=== PATIENT | female | born 1950 | race Caucasian/White ===

== ENCOUNTER 2019-12-01 18:58 | Emergency (ER) | payer MEDICARE, OTHER ==
[~2019-12-01] VITALS: Ht 152.4 cm; Wt 49.4 kg
[~2019-12-01 18:58] MED LIST: ANALGESIC325 MG PO; ATENOLOL; KEFLEX500 MG PO; LOTREL 5-40 MG1 EACH PO; NORCO 7.5-3251 EACH PO; PAXIL; PRILOSEC2.5 MG PO
[2019-12-01 19:19] VITALS: BP 118/56
[2019-12-01 19:55] LABS: INFLUENZA A ANTIGEN Negative (Negative); INFLUENZA B ANTIGEN Negative (Negative)
[2019-12-01] MEDS ORDERED: ZPAK PO (20:17)
[2019-12-01] MEDS ORDERED: PROAIR HFA8.5 GM INH (20:17)
[2019-12-01] MEDS ORDERED: PREDNISONE 20 M20 MG PO (20:20)
== END 2019-12-01 20:35 | disposition home or self-care (01) ==
LOC: M.ERS 18:58
PROVIDERS: Physician Assistant
DX: J44.1 Chronic obstructive pulmonary disease with (acute) exacerbation (principal); J06.9 Acute upper respiratory infection, unspecified; Z20.828 Contact with and (suspected) exposure to other viral communicable diseases; K21.9 Gastro-esophageal reflux disease without esophagitis; F17.210 Nicotine dependence, cigarettes, uncomplicated; Z88.5 Allergy status to narcotic agent; Z88.2 Allergy status to sulfonamides; Z88.8 Allergy status to other drugs, medicaments and biological substances